=== PATIENT | male | born 1970 | race Caucasian/White ===

== ENCOUNTER 2022-07-29 07:27 | Outpatient (OUT) | payer OTHER, SELFPAY ==
--- NOTE | 2022-07-29 07:41 | MR_ITS ---
The [address] [address] Patient Name: SÁNCHEZ RDZ MRN: [id number] date: 1970 Sex: M Assigned Patient Location: MRI Current Patient Location: MRI Accession/Order Number: [id number] Exam Date: 07/29/2022 08:00 Report Date: 07/29/2022 11:55 At the request of: NON-STAFF PHYSICIAN Procedure: MR ankle LT wo con MR ankle LT wo con CLINICAL HISTORY: Displaced Fracture Of Left Fibula S82.422A COMPARISON: None Available. MR TECHNIQUE: Multiplanar multiecho MRI of the the left distal tibia/fibula, left ankle/hindfoot, midfoot, is obtained without IV contrast with axial, sagittal, coronal images. T1 weighted and fluid sensitive images are included. FINDINGS: Large [id number]-[id number] imaging and mild motion artifact partially limits evaluation for fine detail. Acute oblique fracture left distal fibular shaft above the syndesmosis with half width of offset. Diffuse surrounding soft tissue and intramuscular swelling and edema. Malleoli, talar dome and tibial plafond are intact. Remaining osseous structures in the [id number]-[id number] are intact. ATFL, CFL, PTFL are intact. Syndesmotic ligaments are intact within the limits of motion. Deltoid ligaments with intermediate grade partial-thickness injury suspected of the deep fibers. Superficial fibers and spring appear intact. Plantar fascia intact. Lisfranc ligament intact. Diffuse mild nonspecific edema in the plantar foot muscles. Achilles tendon intact. Ankle flexor, extensor, peroneal tendons are intact within the study limits. Tarsal tunnel and sinus Tarsi are negative. IMPRESSION: Acute mildly displaced fracture left distal fibular shaft above the syndesmosis. No other fracture seen. Recommend radiographs of the proximal to mid tibia and fibula to exclude any associated injuries. Intermediate grade partial injury to the deep deltoid ligaments. Remaining ankle ligaments intact. No other fracture. Ankle tendons are intact. Electronically authenticated by: ZECHARIAH ESPINOZA Date: 07/29/2022 11:55
== END 2022-07-29 07:28 ==
LOC: MRI 07:32
DX: S82.422A Displaced transverse fracture of shaft of left fibula, initial encounter for closed fracture (principal)
CPT/HCPCS: 73721

== ENCOUNTER 2022-08-06 07:36 | Outpatient (OUT) | payer OTHER, SELFPAY ==
--- NOTE | 2022-08-06 07:38 | MR_ITS ---
[address] [address] Patient Name: SÁNCHEZ RDZ MRN: [id number] date: 1970 Sex: M Assigned Patient Location: MRI Current Patient Location: MRI Accession/Order Number: [id number] Exam Date: 08/06/2022 07:45 Report Date: 08/06/2022 08:45 At the request of: NON-STAFF PHYSICIAN Procedure: MR knee LT wo con EXAMINATION: MR knee LT wo con HISTORY: Sprain of other specified parts of left knee S83.8x2a COMPARISON: No relevant comparison available. TECHNIQUE: A complete multi-planar MRI was performed. FINDINGS: MEDIAL COMPARTMENT MEDIAL MENISCUS: Linear signal abnormality posterior horn extending to the inferior articular surface best seen on sagittal gradient mass images 20 through 23 CARTILAGE: No visible defect. BONES: No marrow pathology, fracture, or significant arthropathy. MCL AND MEDIAL CAPSULE: Normal medial collateral ligament and medial capsule. LATERAL COMPARTMENT LATERAL MENISCUS: No visible tear or significant degeneration. CARTILAGE: No visible defect. BONES: No marrow pathology, fracture, or significant arthropathy. LCL/POSTEROLAT COMPLEX: Normal lateral collateral ligament, fascicles, lateral capsule and ligaments. ANTERIOR COMPARTMENT PATELLA: No marrow pathology, fracture, or significant arthropathy. CARTILAGE: No visible defect. TENDONS: Normal. EFFUSION: None. No synovitis or loose bodies. ACL: Normal appearing ligament. PCL: Normal appearing ligament. MENISCOFEMORAL: Normal meniscofemoral ligaments. OTHER: Negative. IMPRESSION: Findings suspicious for oblique tear posterior horn of the medial meniscus extending to the inferior articular surface Electronically authenticated by: DARLEEN VILLAFANA Date: 08/06/2022 08:45
== END 2022-08-06 07:37 ==
LOC: MRI 07:36
DX: S83.8X2A Sprain of other specified parts of left knee, initial encounter (principal)
CPT/HCPCS: 73721

== ENCOUNTER 2022-09-20 06:46 | Outpatient (OUT) | payer OTHER, SELFPAY ==
--- NOTE | 2022-09-20 06:48 | MR_ITS ---
The [address] [address] Patient Name: SÁNCHEZ RDZ MRN: [id number] date: 1970 Sex: M Assigned Patient Location: MRI Current Patient Location: MRI Accession/Order Number: [id number] Exam Date: 09/20/2022 06:58 Report Date: 09/20/2022 09:17 At the request of: NON-STAFF PHYSICIAN Procedure: MR foot LT wo con EXAM: MR foot LT wo con HISTORY: Sprain Of Left Foot S93.692A COMPARISON: Left Ankle MRI 07/29/2022.. TECHNIQUE: Multi planar, multisequence MR imaging of the left foot without contrast. Findings: Bones and cartilage: No acute fracture or malalignment. No focal bone marrow edema. No articular erosions. Muscles and tendons: The visualized myotendinous junctions and tendons are intact. No significant tendinosis or tenosynovitis. Ligaments: The ankle ligaments are only visualized on the axial sequence. The medial and lateral ligaments of the ankle are intact. The Lisfranc ligament is intact. Fat signal persists within the sinus Tarsi. Miscellaneous: The plantar fascia is not thickened. MR/MR foot LT wo con IMPRESSION: 1. No acute posttraumatic abnormality. Electronically authenticated by: FALGUNI CACERES Date: 09/20/2022 09:17
== END 2022-09-20 06:47 | disposition home or self-care (01) ==
LOC: MRI 06:46
DX: S93.692A Other sprain of left foot, initial encounter (principal)
CPT/HCPCS: 73718

== ENCOUNTER 2024-07-02 14:16 | Outpatient (OUT) | payer OTHER, SELFPAY | END 2024-07-02 14:17 | disposition home or self-care (01) | LOC: MN 14:18 | DX: Z76.89 Persons encountering health services in other specified circumstances (principal) | CPT/HCPCS: 97802 ==